=== PATIENT | female | born 1955 | race Caucasian/White ===

== ENCOUNTER 2017-06-24 07:07 | Emergency (ER) | payer OTHER ==
[~2017-06-24] VITALS: Ht 167.6 cm; Wt 55.8 kg
[~2017-06-24 07:07] MED LIST: COREG CR40 MG; INVOKANA100 MG; JANUMET 50-1,1 UDTAB; LISINOPRIL20 MG; METFORMIN HCL500 MG; PREDNISONE10 MG PO; SIMVASTATIN20 MG
== END 2017-06-24 09:04 | disposition home or self-care (01) ==
LOC: ER 07:07
DX: S00.83XA Contusion of other part of head, initial encounter (principal); S60.222A Contusion of left hand, initial encounter; W18.39XA Other fall on same level, initial encounter; Y93.89 Activity, other specified; Y92.89 Other specified places as the place of occurrence of the external cause; Y99.8 Other external cause status

== ENCOUNTER 2017-10-05 09:10 | Outpatient (CLI) | payer OTHER | END 2017-10-05 09:30 | disposition home or self-care (01) | LOC: LAB 09:10 → NUCLEAR 13:00 | DX: D64.9 Anemia, unspecified (principal); E03.8 Other specified hypothyroidism; E78.2 Mixed hyperlipidemia; K92.1 Melena; E55.9 Vitamin D deficiency, unspecified; R19.09 Other intra-abdominal and pelvic swelling, mass and lump; Z83.0 Family history of human immunodeficiency virus [HIV] disease ==

== ENCOUNTER 2017-10-05 10:25 | Outpatient (CLI) | payer OTHER | END 2017-10-05 10:57 | disposition home or self-care (01) | LOC: MAMO-SONO 10:25 | DX: Z12.31 Encounter for screening mammogram for malignant neoplasm of breast (principal); N60.11 Diffuse cystic mastopathy of right breast; N60.12 Diffuse cystic mastopathy of left breast; R10.2 Pelvic and perineal pain; M81.0 Age-related osteoporosis without current pathological fracture ==

== ENCOUNTER → 2018-01-23 | Emergency (ER) | payer OTHER ==
[~2018-01-23] VITALS: Ht 167.6 cm; Wt 58.1 kg
== END | disposition left against medical advice (07) ==
LOC: ER 13:49
DX: Z53.20 Procedure and treatment not carried out because of patient's decision for unspecified reasons (principal)

== ENCOUNTER 2018-04-09 12:19 | Outpatient (CLI) | payer OTHER | END 2018-04-09 14:08 | disposition home or self-care (01) | LOC: RAD 12:19 | DX: M26.603 Bilateral temporomandibular joint disorder, unspecified (principal) ==

== ENCOUNTER 2018-04-13 08:48 | Outpatient (CLI) | payer OTHER | END 2018-04-13 08:57 | disposition home or self-care (01) | LOC: RAD 08:48 | DX: M25.572 Pain in left ankle and joints of left foot (principal) ==

== ENCOUNTER 2018-05-04 14:15 | Emergency (ER) | payer OTHER ==
[~2018-05-04] VITALS: Ht 162.6 cm; Wt 59.0 kg
== END 2018-05-04 20:54 | disposition home or self-care (01) ==
LOC: ER 14:15
DX: E11.65 Type 2 diabetes mellitus with hyperglycemia (principal); B34.9 Viral infection, unspecified

== ENCOUNTER 2018-06-16 09:18 | Outpatient (CLI) | payer OTHER | END 2018-06-16 16:58 | disposition home or self-care (01) | LOC: LAB 09:18 | DX: E03.8 Other specified hypothyroidism (principal); E78.2 Mixed hyperlipidemia; E11.29 Type 2 diabetes mellitus with other diabetic kidney complication; R10.84 Generalized abdominal pain ==

== ENCOUNTER 2018-06-23 09:15 | Outpatient (CLI) | payer OTHER | END 2018-06-23 11:22 | disposition home or self-care (01) | LOC: SONOGRAMA 09:15 | DX: R10.9 Unspecified abdominal pain (principal) ==

== ENCOUNTER 2019-02-13 09:58 | Emergency (ER) | payer OTHER ==
[~2019-02-13] VITALS: Ht 167.6 cm; Wt 57.2 kg
[2019-02-13] MEDS ORDERED: DICLOFENAC SODI50 MG PO (12:22)
== END 2019-02-13 12:45 | disposition home or self-care (01) ==
LOC: ER 09:58
DX: S93.691A Other sprain of right foot, initial encounter (principal); X50.0XXA Overexertion from strenuous movement or load, initial encounter; Y93.89 Activity, other specified; Y92.89 Other specified places as the place of occurrence of the external cause; Y99.8 Other external cause status

== ENCOUNTER 2019-09-23 10:19 | Emergency (ER) | payer OTHER ==
[~2019-09-23] VITALS: Ht 167.6 cm; Wt 56.7 kg
[~2019-09-23 10:19] MED LIST changes: +DICLOFENAC SODI50 MG PO
== END 2019-09-23 14:28 | disposition home or self-care (01) ==
LOC: ER 10:19
DX: K14.8 Other diseases of tongue (principal); K08.89 Other specified disorders of teeth and supporting structures

== ENCOUNTER 2020-03-02 09:16 | Outpatient (CLI) | payer OTHER | END 2020-03-02 09:25 | disposition home or self-care (01) | LOC: MAMO-SONO 09:16 | PROVIDERS: ATTEND Internal Medicine | DX: Z12.31 Encounter for screening mammogram for malignant neoplasm of breast (principal); N60.11 Diffuse cystic mastopathy of right breast; N60.12 Diffuse cystic mastopathy of left breast; R10.2 Pelvic and perineal pain ==

== ENCOUNTER → 2020-03-02 09:26 | Outpatient (CLI) | payer OTHER | END | disposition home or self-care (01) | LOC: LAB 08:57 | PROVIDERS: ATTEND Internal Medicine | DX: D64.89 Other specified anemias (principal); E11.29 Type 2 diabetes mellitus with other diabetic kidney complication; E78.2 Mixed hyperlipidemia; E03.8 Other specified hypothyroidism; Z12.11 Encounter for screening for malignant neoplasm of colon; E55.9 Vitamin D deficiency, unspecified; N39.0 Urinary tract infection, site not specified; R97.0 Elevated carcinoembryonic antigen [CEA]; R97.1 Elevated cancer antigen 125 [CA 125] ==

== ENCOUNTER 2020-03-02 11:28 | Outpatient (CLI) | payer OTHER | END 2020-03-02 11:47 | disposition home or self-care (01) | LOC: NUCLEAR 11:28 | PROVIDERS: ATTEND Internal Medicine | DX: M81.0 Age-related osteoporosis without current pathological fracture (principal) ==

== ENCOUNTER 2020-04-01 09:09 | Outpatient (CLI) | payer OTHER | END 2020-04-01 10:25 | disposition home or self-care (01) | LOC: NUCLEAR 09:09 | PROVIDERS: ATTEND Internal Medicine | DX: I11.9 Hypertensive heart disease without heart failure (principal); E11.29 Type 2 diabetes mellitus with other diabetic kidney complication; E78.2 Mixed hyperlipidemia; I65.23 Occlusion and stenosis of bilateral carotid arteries ==

== ENCOUNTER → 2020-09-17 11:55 | Outpatient (CLI) | payer OTHER | END | disposition home or self-care (01) | LOC: LAB 11:55 | PROVIDERS: ATTEND Internal Medicine | DX: D64.89 Other specified anemias (principal); I11.9 Hypertensive heart disease without heart failure; E03.8 Other specified hypothyroidism; E78.2 Mixed hyperlipidemia; E55.9 Vitamin D deficiency, unspecified; E11.9 Type 2 diabetes mellitus without complications ==

== ENCOUNTER 2020-09-17 12:38 | Outpatient (CLI) | payer OTHER | END 2020-09-17 12:54 | disposition home or self-care (01) | LOC: TOM 12:38 | PROVIDERS: ATTEND Internal Medicine | DX: I63.50 Cerebral infarction due to unspecified occlusion or stenosis of unspecified cerebral artery (principal) ==

== ENCOUNTER → 2020-11-02 12:29 | Outpatient (CLI) | payer OTHER | END | disposition home or self-care (01) | LOC: LAB 12:29 | PROVIDERS: ATTEND Internal Medicine | DX: E11.29 Type 2 diabetes mellitus with other diabetic kidney complication (principal) ==

== ENCOUNTER 2022-04-02 16:22 | Emergency (ER) | payer OTHER ==
[~2022-04-02] VITALS: Ht 167.6 cm; Wt 57.6 kg
[~2022-04-02 16:22] MED LIST changes: -LISINOPRIL20 MG; +LISINOPRIL20 MG PO; -SIMVASTATIN20 MG; +SIMVASTATIN20 MG PO
[2022-04-02] MEDS ORDERED: METFORMIN HCL500 M4 PO (16:48)
[2022-04-02] MEDS ORDERED: GLIMEPIRIDE4 MG PO (16:48)
[2022-04-02] MEDS ORDERED: LYRICA50 MG PO (16:49)
== END 2022-04-02 18:33 | disposition home or self-care (01) ==
LOC: ER 16:22
DX: T23.201A Burn of second degree of right hand, unspecified site, initial encounter (principal); E11.9 Type 2 diabetes mellitus without complications; I10 Essential (primary) hypertension; Z88.6 Allergy status to analgesic agent

== ENCOUNTER 2022-05-28 10:40 | Outpatient (CLI) | payer OTHER ==
[~2022-05-28 10:40] MED LIST changes: +GLIMEPIRIDE4 MG PO; +LYRICA50 MG PO; +METFORMIN HCL500 M4 PO
== END 2022-05-28 10:42 | disposition home or self-care (01) ==
LOC: LAB 10:40
PROVIDERS: ATTEND Internal Medicine
DX: E03.8 Other specified hypothyroidism (principal); E11.29 Type 2 diabetes mellitus with other diabetic kidney complication; M19.90 Unspecified osteoarthritis, unspecified site; R76.0 Raised antibody titer; E78.2 Mixed hyperlipidemia; M85.00 Fibrous dysplasia (monostotic), unspecified site

== ENCOUNTER 2022-06-23 08:54 | Outpatient (CLI) | payer OTHER | END 2022-06-23 08:56 | disposition home or self-care (01) | LOC: NUCLEAR 08:54 | PROVIDERS: ATTEND Internal Medicine | DX: I70.212 Atherosclerosis of native arteries of extremities with intermittent claudication, left leg (principal) ==

== ENCOUNTER → 2022-07-09 11:54 | Outpatient (CLI) | payer OTHER | END | disposition home or self-care (01) | LOC: LAB 11:54 | PROVIDERS: ATTEND Internal Medicine | DX: D64.9 Anemia, unspecified (principal); E11.9 Type 2 diabetes mellitus without complications; E78.2 Mixed hyperlipidemia ==

== ENCOUNTER 2022-10-29 10:58 | Outpatient (CLI) | payer OTHER | END 2022-10-29 11:01 | disposition home or self-care (01) | LOC: LAB 10:58 | PROVIDERS: ATTEND Internal Medicine | DX: E03.8 Other specified hypothyroidism (principal); I10 Essential (primary) hypertension; E11.29 Type 2 diabetes mellitus with other diabetic kidney complication; E78.2 Mixed hyperlipidemia ==

== ENCOUNTER 2022-11-20 08:26 | Emergency (ER) | payer OTHER ==
[~2022-11-20] VITALS: Ht 167.6 cm; Wt 59.0 kg
== END 2022-11-20 10:16 | disposition home or self-care (01) ==
LOC: ER 08:26
DX: K13.79 Other lesions of oral mucosa (principal)

== ENCOUNTER 2022-12-20 08:39 | Outpatient (CLI) | payer OTHER | END 2022-12-20 08:41 | disposition home or self-care (01) | LOC: MAMO-SONO 08:39 | PROVIDERS: ATTEND Internal Medicine | DX: N60.11 Diffuse cystic mastopathy of right breast (principal); N60.12 Diffuse cystic mastopathy of left breast; Z12.31 Encounter for screening mammogram for malignant neoplasm of breast; R10.84 Generalized abdominal pain ==

== ENCOUNTER 2022-12-20 11:00 | Outpatient (CLI) | payer OTHER | END 2022-12-20 11:03 | disposition home or self-care (01) | LOC: LAB 11:00 | PROVIDERS: ATTEND Internal Medicine | DX: E11.29 Type 2 diabetes mellitus with other diabetic kidney complication (principal); E78.2 Mixed hyperlipidemia ==

== ENCOUNTER 2022-12-28 13:36 | Outpatient (CLI) | payer OTHER | END 2022-12-28 13:37 | disposition home or self-care (01) | LOC: LAB 13:36 | PROVIDERS: ATTEND Internal Medicine | DX: D64.9 Anemia, unspecified (principal) ==

== ENCOUNTER 2023-01-05 16:40 | Emergency (ER) | payer OTHER ==
[~2023-01-05] VITALS: Ht 167.6 cm; Wt 57.2 kg
[2023-01-05] MEDS ORDERED: [UNRECOGNIZED DRUG - OTHER] (17:55)
[2023-01-05] MEDS ORDERED: TRESIBA100 UNIT/1 (17:56)
== END 2023-01-05 22:03 | disposition home or self-care (01) ==
LOC: ER 16:40
PROVIDERS: Nurse Practitioner Family
DX: M62.838 Other muscle spasm (principal); Z88.8 Allergy status to other drugs, medicaments and biological substances; E11.9 Type 2 diabetes mellitus without complications; Z79.4 Long term (current) use of insulin; I10 Essential (primary) hypertension; M79.7 Fibromyalgia; E78.49 Other hyperlipidemia; N39.0 Urinary tract infection, site not specified; Z20.822 Contact with and (suspected) exposure to COVID-19

== ENCOUNTER 2023-01-08 18:35 | Emergency (ER) | payer OTHER ==
[~2023-01-08] VITALS: Ht 167.6 cm; Wt 65.8 kg
[~2023-01-08 18:35] MED LIST changes: +TRESIBA100 UNIT/1; +[UNRECOGNIZED DRUG - OTHER]
== END 2023-01-08 22:05 | disposition home or self-care (01) ==
LOC: ER 18:35
DX: M54.12 Radiculopathy, cervical region (principal); D51.8 Other vitamin B12 deficiency anemias; E11.9 Type 2 diabetes mellitus without complications; Z79.4 Long term (current) use of insulin; Z88.6 Allergy status to analgesic agent

== ENCOUNTER 2023-01-14 16:08 | Emergency (ER) | payer OTHER ==
[~2023-01-14] VITALS: Ht 162.6 cm; Wt 57.2 kg
[2023-01-14] MEDS ORDERED: INTEGRA CAPSUL1 EACH ×2 (16:22→16:23)
[2023-01-14] MEDS ORDERED: CHLORTHALIDONE25 MG PO (16:22)
[2023-01-14] MEDS ORDERED: SULFAMETHOXAZO473 ML (16:23)
[2023-01-14] MEDS ORDERED: ACID REDUCER20 M1 (16:23)
[2023-01-14] MEDS ORDERED: ATORVASTATIN CA10 MG PO (16:23)
[2023-01-14] MEDS ORDERED: DILTIAZEM125 MG/122 IV (16:24)
== END 2023-01-15 12:09 | disposition home or self-care (01) ==
LOC: ER 16:08
PROVIDERS: General Practice
DX: R20.2 Paresthesia of skin (principal); M50.30 Other cervical disc degeneration, unspecified cervical region; M50.11 Cervical disc disorder with radiculopathy, high cervical region; Z88.8 Allergy status to other drugs, medicaments and biological substances
CPT/HCPCS: 36415; 70450; 72125; 96365; 96372; 99284; J1100; J1885

== ENCOUNTER → 2023-03-04 11:32 | Outpatient (CLI) | payer OTHER ==
[~2023-03-04 11:32] MED LIST changes: +ACID REDUCER20 M1; +ATORVASTATIN CA10 MG PO; +CHLORTHALIDONE25 MG PO; +DILTIAZEM125 MG/122 IV; +INTEGRA CAPSUL1 EACH; +SULFAMETHOXAZO473 ML
[2023-03-04 12:20] LABS: HEMATOCRIT 31.3 % (36.0-45.00); HEMOGLOBIN 9.8 g/dL (12.0-15.00); MEAN CELL VOLUME 83.3 fL (80.00-100.00); MEAN CORPUSCULAR HEMOGLOBIN 26.2 pg (27.00-32.0); MEAN CORPUSCULAR HGB CONC 31.4 g/dl (32.0-36.0); PLATELET COUNT 531 K/uL (150-450); RED BLOOD COUNT 3.76 M/uL (4.00-6.00); RED CELL DISTRIBUTION WIDTH 20.1 % (11.5-14.5)
[2023-03-04 12:30] LABS: CALCIUM 9.8 mg/dL (8.5-10.1); CREATININE SERUM 1.16 mg/dL (0.55-1.02); GFR 46.32; POTASSIUM 5.66 mEq/L (3.5-5.1)
== END | disposition home or self-care (01) ==
LOC: LAB 11:32
PROVIDERS: ATTEND Internal Medicine
DX: D64.9 Anemia, unspecified (principal); I10 Essential (primary) hypertension

== ENCOUNTER 2023-04-22 10:33 | Outpatient (CLI) | payer OTHER | END 2023-04-22 10:38 | disposition home or self-care (01) | LOC: RAD 10:33 | PROVIDERS: ATTEND Internal Medicine | DX: M79.641 Pain in right hand (principal); M79.642 Pain in left hand ==

== ENCOUNTER → 2023-05-17 13:46 | Outpatient (CLI) | payer OTHER ==
[2023-05-17 14:34] LABS: HEMATOCRIT 29.7 % (36.0-45.00); HEMOGLOBIN 9.4 g/dL (12.0-15.00); MEAN CELL VOLUME 81.4 fL (80.00-100.00); MEAN CORPUSCULAR HEMOGLOBIN 25.8 pg (27.00-32.0); MEAN CORPUSCULAR HGB CONC 31.6 g/dl (32.0-36.0); PLATELET COUNT 495 K/uL (150-450); RED BLOOD COUNT 3.64 M/uL (4.00-6.00); RED CELL DISTRIBUTION WIDTH 18.9 % (11.5-14.5)
[2023-05-17 15:03] LABS: MYCOPLASMA PNEUMONIAE IGM NON REACTIVE (NO REACTIVE)
== END | disposition home or self-care (01) ==
LOC: LAB 13:46
PROVIDERS: ATTEND Internal Medicine
DX: D64.9 Anemia, unspecified (principal); B96.0 Mycoplasma pneumoniae [M. pneumoniae] as the cause of diseases classified elsewhere; J11.1 Influenza due to unidentified influenza virus with other respiratory manifestations; Z20.822 Contact with and (suspected) exposure to COVID-19; Z88.5 Allergy status to narcotic agent

== ENCOUNTER 2023-06-06 11:15 | Outpatient (CLI) | payer OTHER | END 2023-06-06 11:16 | disposition home or self-care (01) | LOC: LAB 11:15 | DX: M93.003 Unspecified slipped upper femoral epiphysis (nontraumatic), unspecified hip (principal) ==

== ENCOUNTER 2023-06-26 12:17 | Emergency (ER) | payer OTHER ==
[~2023-06-26] VITALS: Ht 167.6 cm; Wt 72.6 kg
[2023-06-26] MEDS ORDERED: RELAFEN DS1000 MG PO (13:07)
[2023-06-26] MEDS ORDERED: KETOROLAC TROMETHAMINE 30 MG VIAL IM ONE (15:45)
[2023-06-26] MEDS ORDERED: TYLENOL ARTHRI650 MG PO (20:19)
== END 2023-06-26 20:38 | disposition home or self-care (01) ==
LOC: ER 12:17
DX: S92.352A Displaced fracture of fifth metatarsal bone, left foot, initial encounter for closed fracture (principal); Z88.8 Allergy status to other drugs, medicaments and biological substances; W22.8XXA Striking against or struck by other objects, initial encounter; Y93.89 Activity, other specified; Y92.59 Other trade areas as the place of occurrence of the external cause; I10 Essential (primary) hypertension; E78.49 Other hyperlipidemia; E11.9 Type 2 diabetes mellitus without complications; Z79.84 Long term (current) use of oral hypoglycemic drugs
CPT/HCPCS: 73630; 96372; 99283; J1885

== ENCOUNTER 2023-07-14 11:38 | Outpatient (CLI) | payer OTHER ==
[~2023-07-14 11:38] MED LIST changes: +RELAFEN DS1000 MG PO; +TYLENOL ARTHRI650 MG PO
== END 2023-07-14 11:44 | disposition home or self-care (01) ==
LOC: RAD 11:38
PROVIDERS: ATTEND Neurological Surgery
DX: M71.9 Bursopathy, unspecified (principal); M48.02 Spinal stenosis, cervical region; M50.01 Cervical disc disorder with myelopathy, high cervical region